=== PATIENT | female | born 1970 | race Caucasian/White ===

== ENCOUNTER 2017-01-27 21:03 | Emergency (ER) | payer OTHER ==
--- NOTE | ~2017-01-27 | CR72 ---
[facility] A Service of [facility] RADIOLOGY TEXT RESULTS PATIENT: FABIANO MONK LOCATION: [facility] : 70 UNIT #: [id number] AGE: [address]: Daysi Suarez MD SEX: F ORDER DR: [id number] [facility] [address] [facility] [place], [place] [address] [id number] E MR#: [id number] Acc #: [id number] NAME: FABIANO MONK. : 1970 SEX: F STUDY DATE/TIME: 01/27/2017 21:06 UNIT: [facility] ROOM: STUDY DESCRIPTION: CR Chest Single View Portable Attending Physician: Daysi Suarez M.D. Ordering Physician: Daysi Suarez M.D. Primary Care Physician: No Primary Care Physician MEDICAL IMAGING REPORT This report is preliminary unless electronic signature is present EXAM Portable chest. INDICATION Intubation. Heroin overdose. FINDINGS This portable view of the chest shows the endotracheal tube has its tip 2 cm above the ilan. The lungs are clear and the heart size is normal. The bones are normal. Dictated by... Boubacar Brown M.D. THIS IS AN ELECTRONICALLY VERIFIED REPORT Boubacar Brown M.D. at 01/29/2017 7:14 AM GERMÁN/carlos manuel TD: 01/27/2017 23:58 JOB #: [id number] MEDICAL IMAGING REPORT Page 1 of 1 COPY
--- NOTE | ~2017-01-27 | EKG ---
PATIENT: FABIANO MONK UNIT #: [id number] Ventricular Rate: 89 BPM Atrial Rate: 89 BPM P-R Interval: 132 ms QRS Duration: 74 ms Q-T Interval: 372 ms QTC Calculation(Bezet): 452 ms P [place]: 66 degrees Calculated R [place]: 67 degrees Calculated T [place]: 69 degrees Diagnosis Line: Normal sinus rhythm Diagnosis Line: Normal ECG Diagnosis Line: When compared with ECG of 05-JUL-2015 19:50, Diagnosis Line: No significant change was found Diagnosis Line: Confirmed by CARLITA HEREDIA MD ([id number]) on 01/28/2017 Diagnosis Line: 4:09:42 PM INTERPRETING MD: YAN GONZALEZ
--- NOTE | ~2017-01-27 | CT71 ---
[facility] A Service of [facility] RADIOLOGY TEXT RESULTS PATIENT: FABIANO MONK LOCATION: [facility] : 70 UNIT #: [id number] AGE: [address]: Daysi Suarez MD SEX: F ORDER DR: [id number] [place] [id number] [facility] [place], [place] [address] [id number] E MR#: [id number] Acc #: [id number] NAME: FABIANO MONK. : 1970 SEX: F STUDY DATE/TIME: 01/27/2017 20:00 UNIT: [facility] ROOM: STUDY DESCRIPTION: CT Head Wo Contrast Attending Physician: Daysi Suarez M.D. Ordering Physician: Daysi Suarez M.D. Primary Care Physician: No Primary Care Physician MEDICAL IMAGING REPORT This report is preliminary unless electronic signature is present EXAM CT of the head without contrast. INDICATION Seizures today. The patient is intubated. COMPARISON 09/29/[address] exam was performed with one or more of the following radiation dose reduction techniques: automatic exposure control, adjustment of mA and/or kV according to patient size, and iterative reconstruction. FINDINGS Axial noncontrast images were obtained from the skull base to the vertex. Ventricular size and configuration are normal. There is no evidence of acute infarct or hemorrhage. There are no extra-axial fluid collections. No mass lesion or mass effect is seen. There are no skull fractures. IMPRESSION Normal noncontrast head CT. Dictated by... Boubacar Brown M.D. THIS IS AN ELECTRONICALLY VERIFIED REPORT Boubacar Brown M.D. at 01/29/2017 7:14 AM GERMÁN/carlos manuel [facility] A Service [facility] RADIOLOGY TEXT RESULTS PATIENT: FABIANO MONK LOCATION: [facility] : 70 UNIT #: [id number] AGE: [address]: Daysi Suarez MD SEX: F ORDER DR: TD: 01/27/2017 23:26 JOB #: [id number] MEDICAL IMAGING REPORT Page 1 of 1 COPY
[2017-01-27 20:11] LABS: BASOPHIL% 0.3 % (0-2.5); EOSINOPHIL# 0.2 X10e3 (0-0.7); EOSINOPHIL% 1.6 % (0.0-7.0); HEMATOCRIT 43.5 % (35.0-45.0); HEMOGLOBIN 14.5 gm/dL (12.0-16.0); LYMPHOCYTE# 4.7 X10e3 (1.0-3.5); MEAN CELL VOLUME 99.2 FL (83-96); MEAN CORPUSCULAR HEMOGLOBIN 33.2 PG (28-34); MEAN CORPUSCULAR HGB CONC 33.4 g/dL (30-36); MEAN PLATELET VOLUME 9.1 FL (6.5-11.5); MONOCYTE# 0.6 X10e3 (0-1.0); MONOCYTE% 5.7 % (3.0-12.0); NEUTROPHIL# 4.7 X10e3 (1.5-7.1); NEUTROPHIL% 46.4 % (40-75); PLATELET COUNT 246 X10e3 (140-420); RED BLOOD COUNT 4.38 X10e (3.90-5.30); RED CELL DISTRIBUTION WIDTH 13.4 % (11.0-15.5); WHITE BLOOD COUNT 10.2 X10e3 (4.0-10.5)
[2017-01-27 20:12] LABS: DIFF IND NO
[2017-01-27 20:16] LABS: URINE SOURCE CLEAN CATCH
[2017-01-27 20:17] LABS: PARTIAL THROMBOPLASTIN TIME 26.1 SECONDS (23.5-31.3); PROTHROMBIN TIME (PATIENT) 10.1 SECONDS (9.6-11.5)
[2017-01-27 20:21] LABS: ARTERIAL BLOOD GAS CARBOXY HB 3.2 %sat (0.0-9.0); ARTERIAL BLOOD GAS HCO3 26.3 mmol/L; ARTERIAL BLOOD GAS MET HB 1.1 %sat (0.0-2.0); ARTERIAL BLOOD GAS PCO2 35.4 mmHg (35.0-45.0)
[2017-01-27 20:22] LABS: ARTERIAL BLOOD GAS ALLEN TEST NORMAL; ARTERIAL BLOOD GAS ART SITE LEFT RADIAL; ARTERIAL BLOOD GAS DELIVERY VENT; ARTERIAL BLOOD GAS VENT MODE AC; ARTERIAL DRAW? YES
[2017-01-27 20:29] LABS: AMPHETAMINE NEG (NEG); BARBITURATES NEG (NEG); BENZODIAZEPINES NEG (NEG); COCAINE NEG (NEG); MARIJUANA POS (NEG); OPIATES NEG (NEG); TRICYCLIC ANTIDEPRESSANTS NEG (NEG); U METHADONE NEG (NEG)
[2017-01-27 20:30] LABS: ALBUMIN SERUM 4.7 g/dL (3.5-5.0); ALKALINE PHOSPHATASE 65 U/L (32-92); ALT (SGPT) 18 U/L (10-40); AST (SGOT) 25 U/L (10-42); BILIRUBIN, DIRECT <0.1 mg/dL (0.0-0.2); BILIRUBIN,INDIRECT 0.3 mg/dL (0.0-0.9); BILIRUBIN,TOTAL 0.4 mg/dL (0.2-2.0); BLOOD UREA NITROGEN 9 mg/dL (9-23); CALCIUM SERUM 9.7 mg/dL (8.4-10.2); CARBON DIOXIDE 26 mmol/L (22-31); CHLORIDE 106 mmol/L (100-111); CPK (CREATINE PHOSPHOKINASE) 56 IU/L (26-140); CREATININE SERUM 0.5 mg/dL (0.6-1.4); GLOM FILT RATE Estimated 116.1 mL/min (>60); GLUCOSE FASTING 123 mg/dL (70-110); POTASSIUM 3.4 mmol/L (3.5-5.1); PROTEIN TOTAL SERUM 8.5 g/dL (6.0-8.3); SODIUM 143 mmol/L (135-145)
[2017-01-27 20:33] LABS: ALCOHOL BLOOD 301 mg/dL ([, 0]); URINE APPEARANCE CLEAR; URINE BILIRUBIN NEG (NEG); URINE BLOOD NEG (NEG); URINE COLOR YELLOW; URINE GLUCOSE NEG (NEG); URINE KETONE NEG (NEG); URINE LEUKOCYTE ESTERASE NEG (NEG); URINE NITRATE NEG (NEG); URINE PROTEIN NEG (NEG); URINE SPECIFIC GRAVITY 1.004 (1.003-1.035); URINE UROBILINOGEN 0.2 MG/DL (NEG)
[2017-01-27 20:59] LABS: CULTURE INDICATED? NO
[~2017-01-27 21:03] MED LIST: DICLOFENAC PO; DILANTIN KAPSE100 MG PO; DILANTIN PO; FLEXERIL10 M1 PO; HTN MED; KEFLEX500 M2 PO; KEPPRA500 M2 PO; MEDROL4 MG/DOSE- PO; MOBIC PO; NORCO 5/325 TAB1 TAB PO; PHENOBARB PO; SEIZURE MED
== END 2017-01-27 21:23 | disposition hospice, home (50) ==
LOC: CED 21:03
PROVIDERS: Emergency Medicine
DX: G40.901 Epilepsy, unspecified, not intractable, with status epilepticus (principal); I10 Essential (primary) hypertension; F17.210 Nicotine dependence, cigarettes, uncomplicated; Z88.2 Allergy status to sulfonamides; Z79.899 Other long term (current) drug therapy; Z79.01 Long term (current) use of anticoagulants
CPT/HCPCS: 31500; 36415; 36600; 70450; 71010; 80048; 80076; 80307; 81003; 82550; 82803; 82947; 84703; 85025; 85610; 85730; 93005; 94002; 96374; 96375; 99291; C9254; G0480; J1953; J2060